=== PATIENT | female | born 1960 | race African-American/Black ===

== ENCOUNTER 2018-09-01 00:02 | Emergency (ER) | payer BC, OTHER ==
[2018-09-01 00:48] LABS: #Eosinphils 0.2 thou/uL (0.0-0.7); #Lymphocytes 3.5 thou/uL (1.20-3.40); #Monocytes 0.9 thou/uL (0.11-0.59); #Neutrophils 7.7 thou/uL (1.40-6.50); %Basophils 0.3 % (0.0-1.0); %Eosinophils 1.3 % (0.0-10.0); %Lymphocytes 28.4 % (21.0-51.0); %Monocytes 7.3 % (0.0-10.0); %Neutrophils 62.7 % (42.0-75.0); Hemoglobin 9.7 g/dL (12.0-16.0); Mean Corpuscular Hemoglobin 25.8 pg (27.0-31.0); Mean Corpuscular Volume 83.1 fL (78.0-98.0); Mean Platelet Volume 5.3 fL (7.4-10.4); Platelet Count 594 thou/uL (130-400); RBC Distribution Width 14.2 % (11.5-14.5); Red Blood Cell (RBC) Count 3.76 mill/uL (4.20-5.40); White Blood Cell (WBC) Count 12.2 thou/uL (4.8-10.8)
[2018-09-01 01:00] LABS: Lactic Acid 0.6 mmol/L (0.5-2.2)
[2018-09-01 01:04] LABS: ALT (SGPT) 17 U/L (8-55); AST (SGOT) 19 U/L (5-34); Albumin 3.4 g/dL (3.5-5.0); Alkaline Phosphatase 150 U/L (40-150); Anion Gap 13 mmol/L (10-20); BUN (Urea Nitrogen) 10 mg/dL (9.8-20.1); Bilirubin, Total 0.2 mg/dL (0.2-1.2); CK (CPK) 38 U/L (29-168); Calc. Creatinine Clearance 0 mL/min (70-130); Calcium 10.3 mg/dL (7.8-10.44); Carbon Dioxide 25 mmol/L (22-29); Chloride 106 mmol/L (98-107); Estimated GFR-MDRD Greater than 90; Glucose 102 mg/dL (70-105); Potassium 3.8 mmol/L (3.5-5.1); Protein, Total 8.4 g/dL (6.0-8.3); Sodium 140 mmol/L (136-145)
[2018-09-01 02:26] LABS: Bilirubin Negative (Negative); Blood, Urine Negative (Negative); Clarity Clear (Clear); Glucose, Urine (Dipstick) Negative (Negative); Leukocyte Negative (Negative); Nitrite Negative (Negative); Protein, Urine (Dipstick) Negative (Neg-Trace); pH, Urine 6.5 (5.0-9.0)
[2018-09-01 02:32] LABS: Bacteria/HPF Rare-Few HPF (None Seen); Other Microscopic Description 2+ Amorphous Sed.; RBC/HPF 0-3 HPF (0-3); Squamous Epithelial 0-3 HPF (0-3)
[2018-09-01] MEDS ORDERED: HYDROcodone/Acetaminophen 5/325 mg Tablet ONE (02:33)
--- NOTE | 2018-09-01 06:49 | CT ---
CTA CHEST WITH CONTRAST WITH 3D VOLUME RENDERING: INDICATIONS: Pain. Cough. FINDINGS: There is no large, central filling defect of the pulmonary arteries to indicate acute pulmonary embol us. There is a large heterogeneous mass centered within the left upper lobe with a maximum diameter in the craniocaudal dimension of approximately 8.7 cm and transverse measuring 11 cm in an oblique or ientation. The finding is multifocal, which may relate to a conglomeration of multiple adjacent mass es that include satellite lesions. This does encase portions of the right pulmonary artery, with ass ociated attenuation. The finding underlies the anterior, medial left chest wall. An associated over lying pathologic rib fracture of the left chest is seen, although the possibility of early invasion i nto these osseous structures cannot be entirely excluded on the basis of this exam. There are scatte red areas of ground glass and interstitial opacity of the adjacent left pulmonary parenchyma. There is a spiculated, irregular opacity of the lateral right upper lobe, nonspecific. Diffuse lucency thr oughout each unopacified lung indicates prominent pulmonary emphysema. Confluent heterogeneous soft tissue density is suggested at the mediastinum, indicative of either invasion of the adjacent left up per lobe mass or, alternatively, adenopathy. There is mild vascular calcification. There is a nonde script fullness of the left adrenal gland, at the junction of the body and medial/lateral limbs, inco mpletely evaluated. Incidental note of several thyroid hypodensities. Correlate with thyroid ultraso und. IMPRESSION: 1. There is no CTA evidence of acute pulmonary embolus. 2. Large, mass-like opacity centered at the left upper lobe, indicative of malignancy, with addition al scattered ground glass and interstitial pulmonary parenchymal opacities, superimposed upon diffuse pulmonary emphysema. There is resultant attenuation of branches of the left pulmonary arterial syst em by mass effect. This finding is amenable to percutaneous biopsy for further evaluation. 3. Nonspecific, indeterminate fullness of the left adrenal gland. Pending biopsy findings, findings may be further assessed with a whole body PET CT. 4. Soft tissue density of the mediastinum, which could either relate to adenopathy or direct invasio n of the mass. 5. Thyroid hypodensities. Correlate with thyroid ultrasound. POS: [facility]
--- NOTE | 2018-09-01 08:07 | RAD ---
TWO VIEWS CHEST: History: One-month musculoskeletal pain. Cough. Comparison: None. FINDINGS: There is an opacity along the left upper lobe. Cardiac silhouette is within normal limits. Lungs are hyperinflated. No pleural effusion or pneumothorax. IMPRESSION: Left upper lobe opacities, worrisome for pneumonia until proven otherwise. POS: [facility]
[2018-09-01] MEDS ORDERED: Iopamidol 370 76% 100 ML VIAL ONE (09:40)
== END 2018-09-01 07:10 | disposition home or self-care (01) ==
LOC: MADERS 00:02
DX: M79.10 Myalgia, unspecified site (principal); R91.8 Other nonspecific abnormal finding of lung field; Z87.891 Personal history of nicotine dependence
CPT/HCPCS: 36415; 71046; 71260; 80053; 81001; 82550; 83605; 83735; 84443; 85025; 85652; Q9967